=== PATIENT | female | born 1975 | race Caucasian/White ===

== ENCOUNTER 2019-05-31 05:52 | Inpatient (IN) ==
--- NOTE | 2019-05-17 10:36 | PAT Medication Instructions ---
Medication Instructions Date of Service May 17, 2019 Home Medications biotin 10,000 mcg PO QAM cholecalciferol (vitamin D3) [Vitamin D3] 50 mcg PO QAM cyanocobalamin (vitamin B-12) [Vitamin B-12] 500 mcg PO QAM furosemide [Lasix] 20 mg PO QAM ibuprofen 800 mg PO UD PRN lisinopril 20 mg PO QAM naproxen sodium [Aleve] 440 mg PO UD PRN potassium chloride 10 meq PO QAM ASK your surgeon for instructions naproxen sodium [Aleve] 440 mg PO UD PRN ibuprofen 800 mg PO UD PRN DO NOT take the morning of surgery biotin 10,000 mcg PO QAM cholecalciferol (vitamin D3) [Vitamin D3] 50 mcg PO QAM cyanocobalamin (vitamin B-12) [Vitamin B-12] 500 mcg PO QAM furosemide [Lasix] 20 mg PO QAM lisinopril 20 mg PO QAM potassium chloride 10 meq PO QAM Other Notes If you have any questions please call us at [phone] or [phone] or [phone] or [phone]
--- NOTE | 2019-05-18 10:24 | Anesthesiology Consultation ---
Date of Service May 18, 2019 Assessment & Plan (1) Encounter for pre-operative examination: Chart Review Chart Review: Acceptable Risk for Surgery and Patient seen in Pre Admission Testing Teaching & Discussion Pre-Anesthesia Teaching/Discussion Notes: Instructed NPO after midnight before surgery,except medications with 15 cc of water. Medication instructions provided according to the PAT guidelines. History Surgery Operation Date: 05/31/19 13:45 Proposed Procedures p C5-C7 Anterior Cervical Discectomy and Fusion with Spinal Cord Roxy Kendrick DO Height/Weight Height: 5 ft 5 in Weight: 97.2 kg Allergies Allergy/AdvReac Type Severity Reaction Status Date / Time No Known Allergies Allergy Verified 05/10/19 12:15 Medications Home Medications Medication Instructions Recorded Confirmed Last Taken biotin 10,000 mcg PO QAM 05/10/19 05/10/19 Unknown cholecalciferol (vitamin D3) 50 mcg PO QAM 05/10/19 05/10/19 Unknown [Vitamin D3] cyanocobalamin (vitamin B-12) 500 mcg PO QAM 05/10/19 05/10/19 Unknown [Vitamin B-12] furosemide [Lasix] 20 mg PO QAM 05/10/19 05/10/19 Unknown ibuprofen 800 mg PO UD PRN 05/10/19 05/10/19 Unknown lisinopril 20 mg PO QAM 05/10/19 05/10/19 Unknown naproxen sodium [Aleve] 440 mg PO UD PRN 05/10/19 05/10/19 Unknown potassium chloride 10 meq PO QAM 05/10/19 05/10/19 Unknown Past Medical History Medical History Herniated disc, cervical History of kidney stones History of melanoma s/p excision Hypertension Obesity Exercise / Class Metabolic Activity II 4-5 Yardwork/Stairs/Walk up hill Past Family History Family History Other Family history of diabetes mellitus in father Past Surgical History Surgical History (Updated 05/18/19 @ 10:31 by Terri Russ) History of breast augmentation B/L History of cholecystectomy History of colonoscopy History of endoscopy History of hysterectomy History of laparoscopy X3 History of lithotripsy X2 History of shoulder surgery LEFT History of tubal ligation History of urologic surgery BASKET EXTRACTION Hx of LASIK BOTH EYES Past Anesthesia History No Hx of Anesthesia Complications and No Family Hx of Anesthesia Complications History of PONV No Hx of PONV and Hx of Motion Sickness (rare) STOP BANG Total 1 Social History Smoking Status: Former smoker Do You Dip or Chew Tobacco: No Smoking End Date: Quit 1997 Hx Alcohol Use: Yes alcohol intake frequency: holidays/special occasions only Hx Substance Use: No substance use type: does not use Review of Systems Patient denies chest pain, shortness of breath, dyspnea on exertion, cough, wheezing, palpitations. Physical Exam Vital Signs VITALS BP 126/82 P 77 TEMP 98.1 SP02 98%RA RESP 16 PHYSICAL decreased cervical extension 2/2 cervicalgia Full TMJ range of motion. TMD 3.5 finger breaths Mallampati Score 2 Dentition: missing molar Lungs: clear throughout to auscultation Cardiac: regular rate and rhythm, no murmurs noted Spine: normal Carotid arteries: negative bruit Extremities: no edema Testing Laboratory Results 05/18/19 10:37 05/18/19 10:37 PT 10.3 Seconds (9.0-12.0) 05/18/19 10:37 INR 1.0 (0.9-1.1) 05/18/19 10:37 APTT 24.3 Seconds (21.0-31.0) 05/18/19 10:37 Urine Color Yellow 05/18/19 10:37 Urine Appearance Clear (Clear) 05/18/19 10:37 Urine pH 7.0 (4.5-7.5) 05/18/19 10:37 Ur Specific [place] 1.019 (1.000-1.030) 05/18/19 10:37 Urine Protein Negative (Negative) 05/18/19 10:37 Urine Glucose (UA) Negative (Negative) 05/18/19 10:37 Urine Ketones Negative (Negative) 05/18/19 10:37 Urine Nitrite Negative (Negative) 05/18/19 10:37 Ur Leukocyte Esterase Negative (Negative) 05/18/19 10:37 Blood Type A Positive 05/18/19 10:37 Antibody Screen NEGATIVE 05/18/19 10:37 Electrocardiogram Date: 05/18/19 Findings: + NSR @ (75) Chest X-Ray Date: 05/18/19 Findings: + NAD
--- NOTE | 2019-05-18 10:57 | XRay Report ---
XR chest Pre-admission PA/Lat CLINICAL HISTORY: 43 years-old Female presenting with preoperative assessment. TECHNIQUE: PA and lateral views of the chest were obtained. COMPARISON: None. FINDINGS: Cardiomediastinal silhouette normal. Lungs and pleural spaces clear. Degenerative changes of the thor acic spine. Cholecystectomy clips noted. IMPRESSION: 1. No acute cardiopulmonary disease. ACT 112: Negative or not required by law. Electronically signed by: Gavino Gil M.D. 05/18/2019 10:56 AM
[2019-05-18 12:26] LABS: Basophils # (auto) 0.02 K/uL (0-0.2); Basophils % (auto) 0.3 %; Eosinophils # (auto) 0.15 K/uL (0-0.5); Eosinophils % (auto) 2.2 %; Hematocrit (blood only) 37.7 % (37-47); Hemoglobin 12.9 g/dL (12.0-16.0); Immature Granulocytes # (auto) 0.01 K/uL (0.00-0.02); Immature Granulocytes % (auto) 0.1 %; Lymphocytes # (auto) 1.58 K/uL (1.2-3.4); Lymphocytes % (auto) 23.5 %; Mean Corpuscular Hemoglobin 30.6 pg (25-34); Mean Corpuscular Hgb Conc 34.2 g/dL (32-36); Mean Corpuscular Volume 89.3 fL (80-100); Mean Platelet Volume 10.5 fL (7.4-10.4); Monocytes # (auto) 0.39 K/uL (0.11-0.59); Monocytes % (auto) 5.8 %; Neutrophils # (auto) 4.57 K/uL (1.4-6.5); Neutrophils % (auto) 68.1 %; Platelet Count 266 K/uL (130-400); RDW Coefficient of Variation 13.4 % (11.5-14.5); RDW Standard Deviation 44.3 fL (36.4-46.3); Red Blood Count 4.22 M/uL (4.2-5.4); White Blood Count 6.72 K/uL (4.8-10.8)
[2019-05-18 12:27] LABS: Appearance Urine Clear (Clear); Bilirubin Urine Negative (Negative); Blood Urine Negative (Negative); Color Urine Yellow; Glucose Urine UA Negative (Negative); Ketones Urine Negative (Negative); Leukocyte Esterase Urine Negative (Negative); Nitrite Urine Negative (Negative); Protein Urine Negative (Negative); Specific Gravity Urine 1.019 (1.000-1.030); Urobilinogen Urine Negative (Negative)
[2019-05-18 12:39] LABS: Partial Thromboplastin Ratio 0.9; Partial Thromboplastin Time 24.3 Seconds (21.0-31.0); Prothrombin Time 10.3 Seconds (9.0-12.0)
[2019-05-18 12:46] LABS: Creatinine Clr Calc Pharmacy 105.9 ml/min; Est GFR (African American) 106.3; Est GFR (Non-African American) 91.7; Potassium 3.9 mmol/L (3.5-5.1)
--- NOTE | 2019-05-19 07:54 | Electrocardiogram Report ---
Test Reason : Blood Pressure : / mmHG Vent. Rate : 075 BPM Atrial Rate : 075 BPM P-R Int : 140 ms QRS Dur : 076 ms QT Int : 376 ms P-R-T Axes : 060 068 054 degrees QTc Int : 419 ms Normal sinus rhythm Normal ECG No previous ECGs available Confirmed by Rd Meade ([id number]) on 05/19/2019 7:54:11 AM Referred By: Micah Kendrick Confirmed By:Rd Meade
[2019-05-31] MEDS ORDERED: CEFAZOLIN 2000MG 2,000 MG/15 ML SYR IV SCH (06:00)
[2019-05-31] MEDS ORDERED: LR 15ML/HR IV SCH (06:00)
[2019-05-31] MEDS ORDERED: GABAPENTIN 900 MG DOSE PO SCH (06:00)
[2019-05-31] MEDS ORDERED: CeleBREX 200 MG CAP PO SCH (06:00)
[2019-05-31] MEDS ORDERED: ACETAMINOPHEN 500 MG TAB PO SCH (06:00)
[2019-05-31] MEDS ORDERED: GLYCOPYRROLATE 0.2 MG/ML VIAL ONE (06:42)
[2019-05-31] MEDS ORDERED: NEOSTIGMINE METHYLSULFATE 1 MG/ML 10ML VIAL ONE (06:42)
[2019-05-31] MEDS ORDERED: PROPOFOL IV EMULSION 10 MG/ML 20 ML VIAL IV ONE ×2 (06:42→08:24)
[2019-05-31] MEDS ORDERED: LIDOCAINE HCL 2% 2 ML VIAL/AMP(20MG/ML) INFIL ONE (06:42)
[2019-05-31] MEDS ORDERED: MIDAZOLAM HCL 1 MG/ML 2ML VIAL ONE (06:43)
[2019-05-31] MEDS ORDERED: fentaNYL citrate 100 MCG/2 ML VIAL ONE ×2 (06:43→07:57)
[2019-05-31] MEDS ORDERED: PROPOFOL IV EMULSION 10 MG/ML 100 ML VIAL IV ONE (06:56)
[2019-05-31] MEDS ORDERED: BACITRACIN INJ 50,000 UNIT VIAL ONE (07:03)
--- NOTE | 2019-05-31 07:34 | History & Physical Bridge Note ---
Date of Service May 31, 2019 History & Physical Bridge Note I have examined the patient, reviewed the History & Physical and in the interval since the performance of the History & Physical I have noted the following changes of clinical significance: no changes noted
--- NOTE | 2019-05-31 07:36 | History & Physical Report ---
Date of Service May 31, 2019 Assessment & Plan (1) Cervical stenosis of spinal canal: C5-C7 anterior cervical discectomy and fusion Present on Admission?: Yes History of Present Illness Chief Complaint: Neck and arm pain Primary Care Provider: Bruno Harden This is a 43-year-old female that presents with chronic persistent neck and arm pain. After failing extensive course of nonoperative care is here for surgical invention. Allergies Allergy/AdvReac Type Severity Reaction Status Date / Time No Known Allergies Allergy Verified 05/31/19 06:13 Home Medications Home Medications Medication Instructions Recorded Confirmed Type biotin 10,000 mcg PO QAM 05/10/19 05/31/19 History cholecalciferol (vitamin D3) 50 mcg PO QAM 05/10/19 05/31/19 History [Vitamin D3] cyanocobalamin (vitamin B-12) 500 mcg PO QAM 05/10/19 05/31/19 History [Vitamin B-12] furosemide [Lasix] 20 mg PO QAM 05/10/19 05/31/19 History ibuprofen 800 mg PO UD PRN 05/10/19 05/31/19 History lisinopril 20 mg PO QAM 05/10/19 05/31/19 History naproxen sodium [Aleve] 440 mg PO UD PRN 05/10/19 05/31/19 History potassium chloride 10 meq PO QAM 05/10/19 05/31/19 History famotidine [Pepcid] 20 mg PO DAILY PRN 05/31/19 05/31/19 History Past Med/Surg History Family History Other Family history of diabetes mellitus in father Social History Preferred Language: French Communication Ability: Effective Early Childhood Director Required: No Beliefs That Will Affect Care: None Current Living Situation: Spouse and Family Other Information That Helps Us Care for You: No Feels Safe at Home: Yes Smoking Status: Former smoker Do You Dip or Chew Tobacco: No ; Smoking End Date: Quit 1997 ; Hx Alcohol Use: Yes Hx Substance Use: No Physical Exam Physical Exam: Patient is alert and oriented neurologically intact. Results & Data Vital Signs (Past 12 Hours) Vital Signs Temp Pulse Resp BP Pulse Ox 05/31/19 06:20 36.9 C 83 18 145/89 H 95
[2019-05-31] MEDS ORDERED: ROCURONIUM BROMIDE 10 MG/ML 5 ML VIAL ONE (08:08)
[2019-05-31] MEDS ORDERED: DEXAMETHASONE SOD INJ 4 MG/ML VIAL ONE (08:09)
[2019-05-31] MEDS ORDERED: ONDANSETRON INJ 2 MG/ML 2 ML VIAL ONE (08:09)
[2019-05-31] MEDS ORDERED: ePHEDrine sulfate 50 MG/ML AMP IV PRN (08:13)
[2019-05-31] MEDS ORDERED: METOCLOPRAMIDE HCL INJ 5 MG/ML 2 ML VIAL IV PRN ×2 (08:13→11:25)
[2019-05-31] MEDS ORDERED: PROMETHAZINE HCL 12.5 MG in SODIUM CHLORIDE 0.9% 50 ML IV PRN ×2 (08:13→11:25)
[2019-05-31] MEDS ORDERED: ONDANSETRON INJ 2 MG/ML 2 ML VIAL IV PRN ×2 (08:13→11:25)
[2019-05-31] MEDS ORDERED: ATROPINE SULFATE 0.1 MG/ML 10ML SYR IV PRN (08:13)
[2019-05-31] MEDS ORDERED: HYDROmorphone INJ 2 MG/ML SYR/VIAL ONE (08:30)
[2019-05-31] MEDS ORDERED: FLOSEAL HEMOSTATIC MATRIX 10ML TOP ONE (08:49)
--- NOTE | 2019-05-31 09:29 | Operative Report ---
Post Operative Report Pre & Post Diagnosis Operation Date: 05/31/19 07:45 Pre-Op Diagnosis: Cervical spinal stenosis with radiculopathy Post-Op Diagnosis: Same I identified the patient and participated in the time-out.: Yes Procedure Operation Date: 05/31/19 07:45 Actual Procedures #1 anterior cervical discectomy with bilateral foraminotomies C5-6 and C6-7. #2 anterior cervical arthrodesis C5-6 and C6-7. #3 placement of titanium 8 mm cage filled with DBM at C5-6 and C6-7. #4 application of huston plate and screws across C5-6 C6-7. Surgeon Micah Kendrick, DO [employer] Ladonna Seay Estimated Blood Loss 25 Findings Consistent with Post-Op Diagnosis Specimens None Indications This is a 43-year-old female presents with above-mentioned diagnosis after failing extensive course of nonoperative care is here for surgical intervention. Description of Procedure Patient was met with identified informed consent obtained. Patient was then taken to the operative suite underwent an patient placed in supine position the Be table the head Hair header boss. All bony prominences well-padded eyes inspected to ensure no external pressure placed upon the peer at this point the anterior cervical spine was prepped and draped in normal sterile fashion with the assistance of fluoroscopy identified the C6 vertebral body a transverse incision was placed on the right anterior aspect of the cervical spine overlying this region. Sharp dissection with the assistance of bipolar electrocautery was performed down to and exposing the anterior cervical spine from C5-C7. A self- retaining retractors placed. Then performed a complete discectomy of C5-6 out to the uncovertebral joints bilaterally. I did remove all posterior annular fibers longitudinal ligament and bilateral foraminotomies performed. An 8 mm titanium cage with DBM was then tapped in position. We did use [place] pins to assist in visualization. I then proceeded to C6-7. Again complete discectomy performed out to the uncovertebral joints bilaterally. I did remove all posterior annular fibers and longitudinal ligament to perform bilateral foraminotomies. Again an 8 mm titanium cage filled with DBM tapped in position. All distracting apparatus was removed and a huston plate and screws applied with the assistance of fluoroscopy. The incision was then copiously irrigated explored to ensure no damage to surrounding structures remaining bleeding. A 10 round DAMASO drain inserted. The incision was then closed with 2 Vicryl in the fashion of 4 Monocryl for final skin closure. Steri-Strip sterile dressings placed. Patient will continue to PACU stable condition. Please note Ladonna Seay was present at the entire procedure involved the patient positioning complex portions of the surgery and final skin closure. Lastly spinal cord monitoring was utilized that the procedure no changes noted. I attest to the content of the Intraoperative Record and any orders documented therein. Any exceptions are noted below.
--- NOTE | 2019-05-31 10:14 | Fluoroscopy Report ---
FL cervical 2-3V CLINICAL HISTORY: C5-C7 ACDF COMPARISON STUDY: None. FLUOROSCOPY TIME: 13 seconds. FINDINGS: 2 fluoroscopic spot images of the cervical spine demonstrate anterior cervical discectomy a nd fusion from C5 through C7. The hardware appears intact. IMPRESSION: Fluoroscopy provided for ACDF. ACT 112: Negative or not required by law. Electronically signed by: Robles Laura M.D. 05/31/2019 10:13 AM
[2019-05-31] MEDS: fentaNYL citrate 100 MCG/2 ML VIAL IV PRN ×2 (10:16→10:21)
[2019-05-31] MEDS: HYDROmorphone INJ 2 MG/ML SYR/VIAL IV PRN ×2 (10:30→10:38)
--- NOTE | 2019-05-31 10:59 | Anesthesiology Progress Note ---
Date of Service May 31, 2019 Anesthesia Post Procedure Vital Signs Vital Signs: Temp Pulse Pulse Resp BP Pulse Ox 05/31/19 10:50 36.9 C 100 H 16 136/98 98 05/31/19 10:40 85 10 L 144/94 H 98 05/31/19 10:30 79 12 142/77 H 100 05/31/19 10:20 83 12 141/87 H 99 05/31/19 10:10 97 H 12 146/95 H 99 05/31/19 10:00 83 12 112/74 95 05/31/19 09:51 36 C L 113 H 12 130/73 95 05/31/19 06:20 36.9 C 83 18 145/89 H 95 Pain Intensity Neck: Pain Intensity: 4 Transfer of Care Handoff Completed per policy Notes Mental Status: alert / awake / arousable and participated in evaluation Patient Amnestic to Procedure: Yes Nausea / Vomiting: adequately controlled Pain: adequately controlled Airway Patency, RR, SpO2: stable & adequate BP & HR: stable & adequate Hydration State: stable & adequate Anesthetic Complications: no major complications apparent
[2019-05-31] MEDS ORDERED: SOD PHOSPHATE/SOD BIPHOSPHATE ENEMA 132 ML BTL PR PRN (11:25)
[2019-05-31] MEDS ORDERED: NALOXONE HCL 0.4 MG/1 ML VIAL/CARP IV PRN (11:25)
[2019-05-31] MEDS ORDERED: HYDROmorphone INJ 1 MG/ML SYRINGE IV PRN (11:25)
[2019-05-31] MEDS ORDERED: DO NOT ADMINISTER FLU VACCINE PRN (11:25)
[2019-05-31] MEDS ORDERED: ALUMINUM/MAGNESIUM SUSP 30 ML UDC PO PRN (11:25)
[2019-05-31] MEDS ORDERED: DO NOT ADMINISTER PNEUMOCOCCAL VACCINE PRN (11:25)
[2019-05-31] MEDS ORDERED: ACETAMINOPHEN 500 MG TAB PO PRN (11:25)
[2019-05-31] MEDS ORDERED: ONDANSETRON 4 MG OD TAB PO PRN (11:25)
[2019-05-31] MEDS ORDERED: LORazepam 0.5 MG/1 ML VIAL IV PRN (11:25)
[2019-05-31] MEDS ORDERED: LORazepam 0.5 MG TAB PO PRN (11:25)
[2019-05-31] MEDS ORDERED: MAGNESIUM HYDROXIDE SUSP 30 ML UDC PO PRN (11:25)
[2019-05-31] MEDS ORDERED: DEXAMETHASONE SOD PHOSPHATE 8 MG in SYRINGE 0 ML IV PRN (11:25)
[2019-05-31] MEDS ORDERED: RACEPINEPHRINE 2.25% NEBU SOLN 0.5 ML VIAL INH PRN (11:25)
[2019-05-31] MEDS ORDERED: FAMOTIDINE 20 MG TAB PO PRN ×2 (11:25)
[2019-05-31] MEDS: OXYCODONE HCL IR 5 MG TAB (IMMEDIATE RELEASE) PO PRN ×3 (11:58→21:40)
[2019-05-31] MEDS: LACTATED RINGER'S 1,000 ML IV SCH ×2 (11:58→21:38)
[2019-05-31] MEDS: HYDROmorphone INJ 0.5 MG/0.5 ML SYR IV PRN ×2 (14:23→19:10)
[2019-05-31] MEDS: CEFAZOLIN 2000MG 2,000 MG/15 ML SYR IV SCH (16:15)
[2019-05-31] MEDS: ACETAMINOPHEN 1,000 MG/100 ML VIAL IV PRN (16:24)
[2019-05-31] MEDS: TRAMADOL HCL 50 MG TABLET PO PRN (18:20)
[2019-05-31] MEDS ORDERED: DOCUSATE SODIUM/SENNA 50/8.6MG TAB PO SCH (21:00)
[2019-06-01] MEDS: HYDROmorphone INJ 0.5 MG/0.5 ML SYR IV PRN (00:11)
[2019-06-01] MEDS: CEFAZOLIN 2000MG 2,000 MG/15 ML SYR IV SCH (00:12)
[2019-06-01] MEDS: OXYCODONE HCL IR 5 MG TAB (IMMEDIATE RELEASE) PO PRN ×2 (04:27→08:30)
[2019-06-01] MEDS: TRAMADOL HCL 50 MG TABLET PO PRN (06:29)
[2019-06-01] MEDS: ACETAMINOPHEN 1,000 MG/100 ML VIAL IV PRN (08:16)
[2019-06-01] MEDS ORDERED: POTASSIUM CHLORIDE 10 MEQ TABCR PO SCH (09:00)
[2019-06-01] MEDS ORDERED: lisinopriL 20 MG TAB PO SCH (09:00)
[2019-06-01] MEDS ORDERED: CYANOCOBALAMIN 500 MCG TABLET (VITAMIN B-12) PO SCH (09:00)
[2019-06-01] MEDS ORDERED: FUROSEMIDE 20 MG TAB PO SCH (09:00)
[2019-06-01] MEDS ORDERED: POLYETHYLENE (MIRALAX) 17 GM PACK PO SCH (09:00)
--- NOTE | 2019-06-01 09:00 | Anesthesiology Progress Note ---
Date of Service June 01, 2019 Anesthesia Post Procedure Vital Signs Vital Signs: Temp Pulse Pulse Pulse Resp BP Pulse Ox 06/01/19 08:20 82 18 95 06/01/19 06:15 36.6 C 84 16 114/73 93 06/01/19 04:15 36.6 C 88 16 109/72 95 06/01/19 03:17 86 16 94 06/01/19 02:15 36.7 C 80 16 123/79 97 06/01/19 00:15 36.7 C 93 H 16 117/75 95 05/31/19 23:10 105 H 16 94 05/31/19 21:44 100 H 20 115/70 95 05/31/19 20:22 97 H 146/84 H 92 05/31/19 19:50 102 H 16 93 05/31/19 18:11 36.5 C 105 H 16 147/79 H 95 05/31/19 16:11 36.5 C 100 H 22 127/79 95 05/31/19 15:50 106 H 16 96 05/31/19 14:15 103 H 16 153/82 H 97 05/31/19 13:15 103 H 18 144/80 H 95 05/31/19 12:15 100 H 16 123/79 96 05/31/19 11:45 102 H 18 133/83 97 05/31/19 11:23 108 H 15 98 05/31/19 11:15 36.7 C 84 18 134/84 97 05/31/19 11:00 77 16 96 05/31/19 10:50 36.9 C 100 H 16 136/98 98 05/31/19 10:40 85 10 L 144/94 H 98 05/31/19 10:30 79 12 142/77 H 100 05/31/19 10:20 83 12 141/87 H 99 05/31/19 10:10 97 H 12 146/95 H 99 05/31/19 10:00 83 12 112/74 95 05/31/19 09:51 36 C L 113 H 12 130/73 95 Pain Intensity Neck: Pain Intensity: 7 Notes Mental Status: alert / awake / arousable and participated in evaluation Patient Amnestic to Procedure: Yes Nausea / Vomiting: adequately controlled Pain: adequately controlled Airway Patency, RR, SpO2: stable & adequate BP & HR: stable & adequate Hydration State: stable & adequate Anesthetic Complications: no major complications apparent and Pt Satisfied with anesthetic care
[2019-06-01] MEDS ORDERED: DEXAMETHASONE SOD PHOSPHATE 8 MG in SYRINGE 0 ML IV STA (10:22)
--- NOTE | 2019-06-01 10:27 | Discharge Summary ---
Date of Service June 01, 2019 Admission HPI Per Admitting Provider This is a 43-year-old female that presents with chronic persistent neck and arm pain. After failing extensive course of nonoperative care is here for surgical invention. Principal Diagnosis Cervical spinal stenosis with radiculopathy Discharge Data Allergies Allergy/AdvReac Type Severity Reaction Status Date / Time No Known Allergies Allergy Verified 05/31/19 06:13 Procedures Performed Operation Date: 05/31/19 07:45 Actual Procedures p C5-C7 Anterior Cervical Discectomy and Fusion with Spinal Cord Moniotoring(Not Applicable) - Micah Kendrick DO Ordered Studies 05/31/19 07:45 FL cervical 2-3V Routine FL fluoroscopy <1hr Routine Hospital Course (1) Cervical stenosis of spinal canal: Patient underwent anterior cervical discectomy and fusion tolerated as well as taken to orthopedic for postoperative. Postop day 1 she was swallowing well no hoarseness. Arm symptoms improved. DAMASO drain decreasing probably. She had excellent strength testing. Subsequently discharged home. Discharge orders and instructions from the chart for further review. Total Time Total Time Spent Total Time Spent (In Minutes): 20 minutes Discharge Plan Discharge Items Patient Disposition: Home - Self-Care Reason For Visit: Spinal Stenosis Cervical Region Discharge Diagnosis: Cervical spinal stenosis with radiculopathy Activity: As commented below Non-emergency contact: Primary Care Provider Call non-emergency contact if: you have any medication questions Follow-up/Referrals: Bruno Harden [Primary Care Provider] - Diet: Regular Addtl Attending Provider Instructions: ACTIVITY RECOMMENDATIONS: SELF CARE INSTRUCTIONS AFTER CERVICAL FUSIONS 1. No smoking. Smoking drastically decreases the chance of a solid fusion. 2. No bending, lifting more than 5 pounds, or twisting (roll like a log when turning in bed). 3. You may shower 3 days after surgery. Thoroughly dry wound. Do not soak in the tub. 4. Cervical collar: Must be worn at all times including sleeping. You may remove the brace only to bath, eat and if you are sitting in a recliner. 5. Please walk as much as you can for exercise. Gradually increase the distance that you walk as your endurance increases. SPECIAL CARE INSTRUCTIONS: VERY IMPORTANT TO READ AND REVIEW A. Do not take any anti-inflammatory medications (i.e. Indocin, Advil, Aspirin, Naprosyn, Aleve, Motrin, etc.) as these may inhibit the chance of a solid fusion. Tylenol is okay to take. B. Your surgical incision has been closed with a cosmetic suture under the skin that will dissolve in about 6 weeks. In 14 days, you can use a pair of clean scissors and cut the suture that is left outside of the skin at the ends of your incision. C. Complications are uncommon, but please contact us if you have any signs or symptoms of: 1. wound infection (fever higher than 102.5 degrees F, redness, separation of wound, drainage, or increasing pain from the incision) 2. blood clots in legs (pain, swelling, redness and warmth in legs) 3. urinary tract infection (fever higher than 102.5 degrees, burning upon urination or increased frequency of urination) 4. nerve problems (inability to walk on your toes or heels, numbness, loss of bowel or bladder control) 5. any other symptoms that concern you. D. Please call the office at if you have any concerns or questions about your operation or recovery. MANAGING PAIN AFTER SPINAL SURGERY 1. Narcotic medication is intended for short-term use and will be provided for surgical pain. Surgical pain usually lasts for a period of 4-6 weeks. Narcotic medication includes Percocet, Vicodin, Darvocet, Tylenol #3 or Lortab. 2. Longer-term pain is more appropriately treated with non-narcotic medication such as Tylenol ES. 3. Muscle spasm is not appropriately treated with narcotics. Muscle relaxers such as Soma, Flexeril or Skelaxin can be used along with Tylenol ES. 4. Remember that we all live with some "aches and pains". This is not unusual or uncommon after an injury or as we get older. 5. We will provide appropriate medication within the normal guidelines of their prescribed use. We will also be very cautious and aware of potential abuse and extended duration of patients' medication needs. 6. Please allow 2-3 days to process refills. Prescriptions will not be mailed but must be picked up at the office. FOLLOW UP VISIT: Keep your scheduled follow-up appointment. Any questions, please call the office at . Pending Studies at Discharge: No Stand-Alone Forms: [facility], Opioid Pain Management, Smoking Cessation Medications and DC Order Prescriptions: New tramadol 50 mg tablet 50 mg PO Q6H PRN (Reason: pain, moderate) Qty: 14 RF: 0 oxycodone 5 mg tablet 5 mg PO Q6H PRN (Reason: pain, severe) Qty: 14 RF: 0 Continued potassium chloride 10 mEq Capsule, Extended Release 10 meq PO QAM RF: 0 lisinopril 20 mg Tablet 20 mg PO QAM RF: 0 cyanocobalamin (vitamin B-12) [Vitamin B-12] 500 mcg Tablet 500 mcg PO QAM RF: 0 biotin 10,000 mcg Capsule 10,000 mcg PO QAM RF: 0 furosemide [Lasix] 20 mg Tablet 20 mg PO QAM RF: 0 cholecalciferol (vitamin D3) [Vitamin D3] 50 mcg (2,000 unit) Capsule 50 mcg PO QAM RF: 0 famotidine [Pepcid] 20 mg Tablet 20 mg PO DAILY PRN (Reason: Heartburn) RF: 0 Discontinued ibuprofen 800 mg Tablet 800 mg PO UD PRN (Reason: Pain) RF: 0 naproxen sodium [Aleve] 220 mg Capsule 440 mg PO UD PRN (Reason: Pain) RF: 0 Discharge Orders: Discharge Order (Routine); Ordered 06/01/19 Ordered By: Micah Menjivar/Other Patient Handouts: DVT Prevent Admission Data Admit Date/Time: 05/31/19 09:52 Attending Provider: Micah Kendrick Admit Provider: Micah Kendrick Primary Care Provider: Bruno Harden Other Interventions: Discharge Summary Assessment (RN) Last Done: 06/01/19 10:14
[2019-06-02] MEDS ORDERED: bisacodyL 10 MG SUPP PR PRN (09:33)
== END 2019-06-01 11:40 | disposition home or self-care (01) | DRG 473 ==
LOC: ASU 05:52 → 3E 05:52 → OBSVTOIN 09:52